=== PATIENT | female | born 1935 | race Caucasian/White ===

== ENCOUNTER 2017-07-16 11:44 | Inpatient (IN) | payer MEDICARE, OTHER ==
[2017-07-16] MEDS ORDERED: Sodium Chloride 0.9% 10 ML Syringe FLUSH PRN (12:43)
--- NOTE | 2017-07-16 14:28 | EDM.PDOC ---
ED HPI GENERAL MEDICAL PROBLEM - General Chief Complaint: General Stated Complaint: ILLNESS Time Seen by Provider: 07/16/17 12:40 Source of Information: Reports: Patient History Limitations: Reports: No Limitations - History of Present Illness INITIAL COMMENTS - FREE TEXT/NARRATIVE: pt arrivec with 6 or 7 episodes of near syncope. She has not had chest pain. She has not been sob. Onset: Today Duration: Hour(s): Location: Reports: Other (near syncope) Quality: Reports: Sharp, Stabbing Severity: Moderate Associated Symptoms: Reports: Syncope, Weakness denies Pain Score (Numeric/FACES): 0 - Related Data Allergies Allergy/AdvReac Type Severity Reaction Status Date / Time cefadroxil hydrate Allergy Cannot Verified 07/16/17 12:34 [From Duricef] Remember ciprofloxacin [From Cipro] Allergy Cannot Verified 07/16/17 12:34 Remember ciprofloxacin HCl Allergy Cannot Verified 07/16/17 12:34 [From Cipro] Remember meclizine HCl [From Antivert] Allergy Rash Verified 07/16/17 12:34 metronidazole Allergy Cannot Verified 07/16/17 12:34 Remember prednisone Allergy Headache Verified 07/16/17 12:34 Home Meds: Home Meds Diazepam [Valium] 2.5 mg PO BID 05/19/15 [History] Levothyroxine 75 mcg PO DAILY 05/19/15 [History] Linagliptin [Tradjenta] 5 mg PO DAILY 05/19/15 [History] Simvastatin [Zocor] 20 mg PO DAILY 05/19/15 [History] Past Medical History HEENT History: Reports: Cataract, Hard of Hearing Cardiovascular History: Reports: High Cholesterol, Hypertension, CT, Other (See Below) Other Cardiovascular History: mi 1985 Respiratory History: Reports: COPD Gastrointestinal History: Reports: Chronic Constipation, Hemorrhoids, Hiatal Hernia, Other (See Below) Other Gastrointestinal History: RECENT DIARRHEA, ABDOMINAL PAIN AND LOOSE STOOLS Genitourinary History: Reports: Chronic Renal Insuffiency, Other (See Below) Other Genitourinary History: frequency 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: Musculoskeletal History: Reports: Osteoarthritis Psychiatric History: Reports: Anxiety Other Psychiatric History: nervous breakdown Endocrine/Metabolic History: Reports: Diabetes, Type II, Hypothyroidism - Infectious Disease History Infectious Disease History: Reports: Chicken Pox, Measles, Mumps - Past Surgical History GI Surgical History: Reports: Appendectomy, Cholecystectomy, Other (See Below) Female Surgical History: Reports: Hysterectomy, Salpingo-Oophorectomy Social & Family History - Family History HEENT: Reports: Cataract Cardiac: Reports: Hypertension, CT Oncologic: Reports: Uterine - Tobacco Use Smoking Status *Q: Former Smoker Used Tobacco, but Quit: Yes Month/Year Tobacco Last Used: 15 Second Hand Smoke Exposure: No - Caffeine Use Caffeine Use: Reports: Coffee - Recreational Drug Use Recreational Drug Use: No ED ROS GENERAL - Review of Systems Review Of Systems: See Below Constitutional: Reports: No Symptoms HEENT: Reports: No Symptoms Respiratory: Reports: No Symptoms Cardiovascular: Reports: No Symptoms Endocrine: Reports: No Symptoms GI/Abdominal: Reports: No Symptoms : Reports: No Symptoms Skin: Reports: No Symptoms Neurological: Reports: Syncope, Other (pt had about 7 episodes of neaR SYNCOPE) ED EXAM, GENERAL - Physical Exam Exam: See Below Free Text/Narrative:: PT ARRIVED WITH 6 EPISODES OF NEAR SYNCOPE. sHE HAS NOT HAD ANY CHEST PAIN. Exam Limited By: No Limitations General Appearance: Alert, No Apparent Distress, Anxious, Other (PUPILS EQUAL AND REACTIVE) Ears: Normal TMs Nose: Normal Inspection Throat/Mouth: Normal Inspection Head: Atraumatic Neck: Normal Inspection Respiratory/Chest: No Respiratory Distress Cardiovascular: Regular Rate, Rhythm, Tachycardia, Other (PT HAS A RATE OF 126) GI/Abdominal: Soft, Non-Tender Rectal (Female) Exam: Deferred Back Exam: Normal Inspection Extremities: Normal Inspection Neurological: Alert, Oriented, Normal Cognition Psychiatric: Normal Affect Course - Vital Signs Last Recorded V/S: Last Vital Signs Temp 36.6 C 07/17/17 08:00 Pulse 54 L 07/17/17 08:00 Resp 20 07/17/17 08:00 BP 124/51 L 07/17/17 08:00 Pulse Ox 98 07/17/17 08:00 Orthostatic Blood Pressure [ 135/93 Standing] Orthostatic Blood Pressure [ 155/91 Sitting] Orthostatic Blood Pressure [ 169/89 Supine] - Orders/Labs/Meds Labs: Laboratory Tests 07/16/17 07/16/17 07/16/17 Range/Units 12:42 12:42 12:42 WBC 7.0 (4.5-11.0) K/uL RBC 5.07 (3.30-5.50) M/uL Hgb 15.0 (12.0-15.0) g/dL Hct 46.5 (36.0-48.0) % MCV 92 (80-98) fL MCH 30 (27-31) pg MCHC 32 (32-36) % Plt Count 167 (150-400) K/uL Neut % (Auto) 54 (36-66) % Lymph % (Auto) 23 L (24-44) % [place] % (Auto) 14 H (2-6) % Eos % (Auto) 8 H (2-4) % Baso % (Auto) 0 (0-1) % Sodium 141 (140-148) mmol/L Potassium 4.8 (3.6-5.2) mmol/L Chloride 110 H (100-108) mmol/L Carbon Dioxide 23 (21-32) mmol/L Anion Gap 12.8 (5.0-14.0) mmol/L BUN 23 H (7-18) mg/dL Creatinine 1.6 H (0.6-1.0) mg/dL Est Cr Clr Drug Dosing 19.14 mL/min Estimated GFR (MDRD) 31 L (>60) Glucose 92 (74-106) mg/dL Calcium 9.2 (8.5-10.1) mg/dL Total Bilirubin 0.5 (0.2-1.0) mg/dL AST 25 (15-37) U/L ALT 25 (12-78) U/L Alkaline Phosphatase 113 (46-116) U/L Troponin I 0.781 H* (0.000-0.056) ng/mL Total Protein 7.3 (6.4-8.2) g/dL Albumin 3.6 (3.4-5.0) g/dL Globulin 3.7 H (2.3-3.5) g/dL Albumin/Globulin Ratio 1.0 L (1.2-2.2) Urine Color Urine Appearance Urine pH (4.5-8.0) Ur Specific [place] (1.008-1.030) Urine Protein (NEGATIVE) mg/dL Urine Glucose (UA) (NEGATIVE) mg/dL Urine Ketones (NEGATIVE) mg/dL Urine Occult Blood (NEGATIVE) Urine Nitrite (NEGATIVE) Urine Bilirubin (NEGATIVE) Urine Urobilinogen (NORMAL) mg/dL Ur Leukocyte Esterase (NEGATIVE) Urine RBC (0-5) Urine WBC (0-5) Ur Epithelial Cells Amorphous Sediment Urine Bacteria Urine Mucus 07/16/17 Range/Units 13:34 WBC (4.5-11.0) K/uL RBC (3.30-5.50) M/uL Hgb (12.0-15.0) g/dL Hct (36.0-48.0) % MCV (80-98) fL MCH (27-31) pg MCHC (32-36) % Plt Count (150-400) K/uL Neut % (Auto) (36-66) % Lymph % (Auto) (24-44) % [place] % (Auto) (2-6) % Eos % (Auto) (2-4) % Baso % (Auto) (0-1) % Sodium (140-148) mmol/L Potassium (3.6-5.2) mmol/L Chloride (100-108) mmol/L Carbon Dioxide (21-32) mmol/L Anion Gap (5.0-14.0) mmol/L BUN (7-18) mg/dL Creatinine (0.6-1.0) mg/dL Est Cr Clr Drug Dosing mL/min Estimated GFR (MDRD) (>60) Glucose (74-106) mg/dL Calcium (8.5-10.1) mg/dL Total Bilirubin (0.2-1.0) mg/dL AST (15-37) U/L ALT (12-78) U/L Alkaline Phosphatase (46-116) U/L Troponin I (0.000-0.056) ng/mL Total Protein (6.4-8.2) g/dL Albumin (3.4-5.0) g/dL Globulin (2.3-3.5) g/dL Albumin/Globulin Ratio (1.2-2.2) Urine Color Yellow Urine Appearance Slightly cloudy Urine pH 7.0 (4.5-8.0) Ur Specific [place] 1.010 (1.008-1.030) Urine Protein Negative (NEGATIVE) mg/dL Urine Glucose (UA) Normal (NEGATIVE) mg/dL Urine Ketones Negative (NEGATIVE) mg/dL Urine Occult Blood Negative (NEGATIVE) Urine Nitrite Negative (NEGATIVE) Urine Bilirubin Negative (NEGATIVE) Urine Urobilinogen Normal (NORMAL) mg/dL Ur Leukocyte Esterase Small (NEGATIVE) Urine RBC Not seen (0-5) Urine WBC 5-10 H (0-5) Ur Epithelial Cells Moderate Amorphous Sediment Rare Urine Bacteria Few Urine Mucus Not seen Meds: Medications Discontinued Medications Generic Name Dose Route Start Last Admin Trade Name Freq PRN Reason Stop Dose Admin Adenosine 6 mg 07/16/17 14:32 07/16/17 14:36 Adenocard IVPUSH 07/16/17 14:33 6 mg NOW ONE Administration Diazepam 2.5 mg 07/16/17 21:00 07/17/17 08:39 Valium. PO 2.5 mg BID BERTHA Administration Diltiazem HCl 5 mg 07/16/17 15:00 07/16/17 15:00 Diltiazem IVPUSH 07/16/17 15:01 5 mg ONETIME ONE Administration Sodium Chloride 1,000 mls @ 200 mls/hr 07/16/17 14:30 07/16/17 14:36 Normal Saline IV 200 mls/hr ASDIRECTED BERTHA Administration Diltiazem HCl 125 mg/ Dextrose 125 mls @ 5 mls/hr 07/16/17 14:45 07/16/17 22: 30 /Water IV 0 mg/hr TITRATE BERTHA 0 mls/hr Titration Protocol 5 MG/HR Diltiazem HCl 100 mg/ Sodium 100 mls @ 5 mls/hr 07/16/17 15:15 Chloride IV TITRATE BERTHA Protocol 5 MG/HR Sodium Chloride 1,000 mls @ 100 mls/hr 07/16/17 23:00 07/16/17 23:34 Normal Saline IV 100 mls/hr ASDIRECTED BERTHA Administration Levothyroxine Sodium 75 mcg 07/17/17 07:30 07/17/17 08:10 Levothyroxine PO 75 mcg DAILY@0730 BERTHA Administration Simvastatin 80 mg 07/17/17 09:00 07/17/17 09:46 Zocor PO Not Given DAILY BERTHA Sodium Chloride 10 ml 07/16/17 12:43 07/16/17 13:34 Saline Flush FLUSH 10 ml ASDIRECTED PRN Administration Keep Vein Open - Re-Assessments/Exams Free Text/Narrative Re-Assessment/Exam: 07/16/17 14:44 PT CONTINUED TO HAVE A HEART RATE OF 125-127. sHE HAD NO PAIN. sHE HAS NOT HAD ANY FURTHER SYNCOPAL EPISODES. sHE WAS GIVEN ADENOGARD AND SHE WAS IN ATRIAL FLUTTER. wILL START A CARDIZEM DRIP. hER TROP WAS ELEVATED AT GREATER THAN .7 Departure - Departure Time of Disposition: 14:47 Disposition: Admitted As Inpatient 65 Condition: Fair Clinical Impression: Syncope, Atrial flutter, Elevated troponin - Discharge Information
[2017-07-16] MEDS ORDERED: Sodium Chloride 0.9% 1,000 ML IV SCH ×2 (14:30→23:00)
[2017-07-16] MEDS ORDERED: Adenosine 6 MG/2 ML SDV IVPUSH ONE (14:32)
[2017-07-16] MEDS ORDERED: Diltiazem 25 MG/5 ML SDV IVPUSH ONE ×2 (14:40→15:00)
[2017-07-16] MEDS ORDERED: Diltiazem 100 MG in Sodium Chloride 0.9% 100 ML IV SCH ×2 (14:45→15:15)
--- NOTE | 2017-07-16 15:02 | PCM.HP ---
H&P History of Present Illness - General Date of Service: 07/16/17 Admit Problem/Dx: Admission Diagnosis/Problem Admission Diagnosis/Problem Atrial flutter Source of Information: Patient, EMS Notes Reviewed History Limitations: Reports: No Limitations - History of Present Illness Initial Comments - Free Text/Narative: Anahi started to feel weak while sitting in a chair after eating a meal. She had 1/2 cup of coffee and tejada. Came into the ER feeling weak. A rapid heart rate was found and was given Adenosine and showed her heart to be in a flutter with tachycardia. Onset of Symptoms: Reports: Today, Sudden Severity: Moderate denies Pain Score (Numeric/FACES): 0 - Related Data Allergies/Adverse Reactions: Allergies Allergy/AdvReac Type Severity Reaction Status Date / Time cefadroxil hydrate Allergy Cannot Verified 07/16/17 12:34 [From Duricef] Remember ciprofloxacin [From Cipro] Allergy Cannot Verified 07/16/17 12:34 Remember ciprofloxacin HCl Allergy Cannot Verified 07/16/17 12:34 [From Cipro] Remember meclizine HCl [From Antivert] Allergy Rash Verified 07/16/17 12:34 metronidazole Allergy Cannot Verified 07/16/17 12:34 Remember prednisone Allergy Headache Verified 07/16/17 12:34 Home Medications: Home Meds Diazepam [Valium] 2.5 mg PO BID 05/19/15 [History] Levothyroxine 75 mcg PO DAILY 05/19/15 [History] Linagliptin [Tradjenta] 5 mg PO DAILY 05/19/15 [History] Simvastatin [Zocor] 20 mg PO DAILY 05/19/15 [History] Past Medical History HEENT History: Reports: Cataract, Hard of Hearing Cardiovascular History: Reports: High Cholesterol, Hypertension, [place], Other (See Below) Other Cardiovascular History: mi 1985 Respiratory History: Reports: COPD Gastrointestinal History: Reports: Chronic Constipation, Hemorrhoids, Hiatal Hernia, Other (See Below) Other Gastrointestinal History: RECENT DIARRHEA, ABDOMINAL PAIN AND LOOSE STOOLS Genitourinary History: Reports: Chronic Renal Insuffiency, Other (See Below) Other Genitourinary History: frequency 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: Musculoskeletal History: Reports: Osteoarthritis Psychiatric History: Reports: Anxiety Other Psychiatric History: nervous breakdown Endocrine/Metabolic History: Reports: Diabetes, Type II, Hypothyroidism - Infectious Disease History Infectious Disease History: Reports: Chicken Pox, Measles, Mumps - Past Surgical History GI Surgical History: Reports: Appendectomy, Cholecystectomy, Other (See Below) Female Surgical History: Reports: Hysterectomy, Salpingo-Oophorectomy Social & Family History - Family History HEENT: Reports: Cataract Cardiac: Reports: Hypertension, [place] Oncologic: Reports: Uterine - Tobacco Use Smoking Status *Q: Former Smoker Used Tobacco, but Quit: Yes Month/Year Tobacco Last Used: 15 Second Hand Smoke Exposure: No - Caffeine Use Caffeine Use: Reports: Coffee - Recreational Drug Use Recreational Drug Use: No H&P Review of Systems - Review of Systems: Review Of Systems: See Below General: Reports: Weakness, Fatigue, Diaphoresis HEENT: Reports: No Symptoms Pulmonary: Reports: No Symptoms Cardiovascular: Reports: Palpitations, Dyspnea on Exertion Gastrointestinal: Reports: No Symptoms Genitourinary: Reports: Frequency Musculoskeletal: Reports: No Symptoms Skin: Reports: No Symptoms Psychiatric: Reports: Anxiety Neurological: Reports: Weakness Hematologic/Lymphatic: Reports: No Symptoms Exam - Exam Exam: See Below - Vital Signs Vital Signs: Last Vital Signs Temp 98.7 F 07/16/17 12:32 Pulse 126 H 07/16/17 12:32 Resp 14 07/16/17 12:32 BP 165/87 H 07/16/17 12:32 Pulse Ox 94 L 07/16/17 12:32 Orthostatic Blood Pressure [ 135/93 Standing] Orthostatic Blood Pressure [ 155/91 Sitting] Orthostatic Blood Pressure [ 169/89 Supine] Weight: 172 lb - Exam General: Alert, Oriented, Cooperative, Moderate Distress HEENT: PERRLA, EACs Clear Neck: Supple, Trachea Midline, 2 Lungs: Clear to Auscultation, Normal Respiratory Effort Cardiovascular: Tachycardia GI/Abdominal Exam: Normal Bowel Sounds, Soft, Non-Tender, No Organomegaly, No Distention, No Abnormal Bruit, No Mass, Pelvis Stable Extremities: Normal Inspection Peripheral Pulses: 1+: Radial (L), Radial (R) Skin: Warm, Dry, Intact Neurological: Reflexes Equal Bilateral Neuro Extensive - Mental Status: Alert, Oriented x3 Neuro Extensive - Motor, Sensory, Reflexes: CN II-XII Intact DTR: 1+: Bicep (L), Bicep (R) Psychiatric: Alert, Anxious - Patient Data Lab Results Last 24 hrs: Laboratory Results - last 24 hr 07/16/17 07/16/17 07/16/17 Range/Units 12:42 12:42 12:42 WBC 7.0 (4.5-11.0) K/uL RBC 5.07 (3.30-5.50) M/uL Hgb 15.0 (12.0-15.0) g/dL Hct 46.5 (36.0-48.0) % MCV 92 (80-98) fL MCH 30 (27-31) pg MCHC 32 (32-36) % Plt Count 167 (150-400) K/uL Neut % (Auto) 54 (36-66) % Lymph % (Auto) 23 L (24-44) % [place] % (Auto) 14 H (2-6) % Eos % (Auto) 8 H (2-4) % Baso % (Auto) 0 (0-1) % Sodium 141 (140-148) mmol/L Potassium 4.8 (3.6-5.2) mmol/L Chloride 110 H (100-108) mmol/L Carbon Dioxide 23 (21-32) mmol/L Anion Gap 12.8 (5.0-14.0) mmol/L BUN 23 H (7-18) mg/dL Creatinine 1.6 H (0.6-1.0) mg/dL Est Cr Clr Drug Dosing 19.14 mL/min Estimated GFR (MDRD) 31 L (>60) Glucose 92 (74-106) mg/dL Calcium 9.2 (8.5-10.1) mg/dL Total Bilirubin 0.5 (0.2-1.0) mg/dL AST 25 (15-37) U/L ALT 25 (12-78) U/L Alkaline Phosphatase 113 (46-116) U/L Troponin I 0.781 H* (0.000-0.056) ng/mL Total Protein 7.3 (6.4-8.2) g/dL Albumin 3.6 (3.4-5.0) g/dL Globulin 3.7 H (2.3-3.5) g/dL Albumin/Globulin Ratio 1.0 L (1.2-2.2) Urine Color Urine Appearance Urine pH (4.5-8.0) Ur Specific [place] (1.008-1.030) Urine Protein (NEGATIVE) mg/dL Urine Glucose (UA) (NEGATIVE) mg/dL Urine Ketones (NEGATIVE) mg/dL Urine Occult Blood (NEGATIVE) Urine Nitrite (NEGATIVE) Urine Bilirubin (NEGATIVE) Urine Urobilinogen (NORMAL) mg/dL Ur Leukocyte Esterase (NEGATIVE) Urine RBC (0-5) Urine WBC (0-5) Ur Epithelial Cells Amorphous Sediment Urine Bacteria Urine Mucus 07/16/17 Range/Units 13:34 WBC (4.5-11.0) K/uL RBC (3.30-5.50) M/uL Hgb (12.0-15.0) g/dL Hct (36.0-48.0) % MCV (80-98) fL MCH (27-31) pg MCHC (32-36) % Plt Count (150-400) K/uL Neut % (Auto) (36-66) % Lymph % (Auto) (24-44) % [place] % (Auto) (2-6) % Eos % (Auto) (2-4) % Baso % (Auto) (0-1) % Sodium (140-148) mmol/L Potassium (3.6-5.2) mmol/L Chloride (100-108) mmol/L Carbon Dioxide (21-32) mmol/L Anion Gap (5.0-14.0) mmol/L BUN (7-18) mg/dL Creatinine (0.6-1.0) mg/dL Est Cr Clr Drug Dosing mL/min Estimated GFR (MDRD) (>60) Glucose (74-106) mg/dL Calcium (8.5-10.1) mg/dL Total Bilirubin (0.2-1.0) mg/dL AST (15-37) U/L ALT (12-78) U/L Alkaline Phosphatase (46-116) U/L Troponin I (0.000-0.056) ng/mL Total Protein (6.4-8.2) g/dL Albumin (3.4-5.0) g/dL Globulin (2.3-3.5) g/dL Albumin/Globulin Ratio (1.2-2.2) Urine Color Yellow Urine Appearance Slightly cloudy Urine pH 7.0 (4.5-8.0) Ur Specific [place] 1.010 (1.008-1.030) Urine Protein Negative (NEGATIVE) mg/dL Urine Glucose (UA) Normal (NEGATIVE) mg/dL Urine Ketones Negative (NEGATIVE) mg/dL Urine Occult Blood Negative (NEGATIVE) Urine Nitrite Negative (NEGATIVE) Urine Bilirubin Negative (NEGATIVE) Urine Urobilinogen Normal (NORMAL) mg/dL Ur Leukocyte Esterase Small (NEGATIVE) Urine RBC Not seen (0-5) Urine WBC 5-10 H (0-5) Ur Epithelial Cells Moderate Amorphous Sediment Rare Urine Bacteria Few Urine Mucus Not seen Result Diagrams: 07/17/17 05:11 07/17/17 05:11 Problem List Initiated/Reviewed/Updated: Yes Orders Last 24hrs: Active Orders 24 hr Category Date Time Status Patient Status [ADT] Routine ADT 07/16/17 14:48 Ordered Blood Glucose Check, Bedside [RC] QIDACANDBED Care 07/16/17 14:48 Ordered EKG Documentation Completion [RC] ASDIRECTED Care 07/16/17 12:42 Active Basurto Catheter Insertion [Insert Urinary Catheter] [OM. Care 07/16/17 15:00 Ordered PC] Q24H Height and Weight [RC] DAILY Care 07/16/17 14:48 Ordered Intake and Output [RC] QSHIFT Care 07/16/17 14:51 Ordered May Shower [RC] ASDIRECTED Care 07/16/17 14:48 Ordered Orthostatic Vital Signs [RC] ASDIRECTED Care 07/16/17 12:43 Active Oxygen Therapy [RC] PRN Care 07/16/17 14:48 Ordered Up With Assistance [RC] ASDIRECTED Care 07/16/17 14:48 Ordered Up to Chair [RC] QID Care 07/16/17 14:48 Ordered Urinary Catheter Assessment [RC] ASDIRECTED Care 07/16/17 14:47 Active VTE/DVT Education [RC] Per Unit Routine Care 07/16/17 14:48 Ordered Vital Signs [RC] Q4H Care 07/16/17 14:48 Ordered Consistent Carbohydrate Diet [DIET] Diet 07/16/17 Dinner Ordered BASIC METABOLIC PANEL,BMP [CHEM] AM Lab 07/17/17 05:11 Ordered CBC WITH AUTO DIFF [HEME] AM Lab 07/17/17 05:11 Ordered UA W/MICROSCOPIC [URIN] Urgent Lab 07/16/17 13:34 Ordered Diazepam [Valium] Med 07/16/17 21:00 Ordered 2.5 mg PO BID Diltiazem 100 MG in Normal Saline Adv @ 5 MG/HR(100ml) Med 07/16/17 15:15 Ordered Diltiazem [Cardizem] 100 mg Sodium Chloride 0.9% [Normal Saline] 100 ml IV TITRATE Diltiazem 125 mg Med 07/16/17 14:45 Active Dextrose 5% in Water 100 ml IV TITRATE Levothyroxine Med 07/17/17 09:00 Ordered 75 mcg PO DAILY Linagliptin [Tradjenta] Med 07/17/17 09:00 Ordered 5 mg PO DAILY Simvastatin [Zocor] Med 07/17/17 09:00 Ordered 80 mg PO DAILY Sodium Chloride 0.9% [Normal Saline] 1,000 ml Med 07/16/17 14:30 Active IV ASDIRECTED Sodium Chloride 0.9% [Saline Flush] Med 07/16/17 12:43 Active 10 ml FLUSH ASDIRECTED PRN Saline Lock Insert [OM.PC] Routine Oth 07/16/17 12:43 Ordered Resuscitation Status Routine Resus Stat 07/16/17 14:48 Ordered EKG 12 Lead [EK] Routine Ther 07/16/17 12:42 Ordered Medication Orders Diazepam (Valium.) 2.5 mg PO BID BERTHA Sodium Chloride (Normal Saline) 1,000 mls @ 200 mls/hr IV ASDIRECTED BERTHA Last Admin: 07/16/17 14:36 Dose: 200 mls/hr Diltiazem HCl 125 mg/ Dextrose (/Water) 125 mls @ 5 mls/hr IV TITRATE BERTHA; Protocol Diltiazem HCl 100 mg/ Sodium (Chloride) 100 mls @ 5 mls/hr IV TITRATE BERTHA; Protocol Levothyroxine Sodium (Levothyroxine) 75 mcg PO DAILY BERTHA Non-Formulary Medication (Linagliptin [Tradjenta]) 5 mg PO DAILY BERTHA Non-Formulary Medication (Simvastatin [Zocor]) 80 mg PO DAILY BERTHA Sodium Chloride (Saline Flush) 10 ml FLUSH ASDIRECTED PRN PRN Reason: Keep Vein Open Last Admin: 07/16/17 13:34 Dose: 10 ml Assessment/Plan Comment:: Assessment/Plan: #1. Atrial Flutter: Have transferred her to the ICU and started her on a Cardizem drip and will titrate as needed. #2. DMII: Will continue with Tradjenta #3. Anxiety: Will continue with Diazepam #4. Hypothyroid: Continue with Levothyroxine 75 mcg #5. HTN: Will hold Amlodipine #6. HLD: Continue with Simvastatin.
[2017-07-16] MEDS: Diazepam 5 MG Tab PO SCH (20:41)
[2017-07-17] MEDS ORDERED: Levothyroxine 75 MCG Tab PO SCH (07:30)
[2017-07-17] MEDS: Diazepam 5 MG Tab PO SCH (08:39)
[2017-07-17] MEDS: Simvastatin 20 MG Tab PO SCH ×2 (08:50→09:46)
[2017-07-17 11:01] VITALS: BP 124/51
--- NOTE | 2017-07-17 13:12 | PCM.PN ---
- General Info Date of Service: 07/17/17 Functional Status: Reports: Pain Controlled - Review of Systems General: Reports: Weakness, Fatigue HEENT: Reports: No Symptoms Pulmonary: Reports: No Symptoms Cardiovascular: Reports: No Symptoms Gastrointestinal: Reports: No Symptoms Genitourinary: Reports: No Symptoms Musculoskeletal: Reports: No Symptoms Skin: Reports: No Symptoms Neurological: Reports: No Symptoms Psychiatric: Reports: Anxiety - Patient Data Vitals - Most Recent: Last Vital Signs Temp 97.9 F 07/17/17 08:00 Pulse 54 L 07/17/17 08:00 Resp 20 07/17/17 08:00 BP 124/51 L 07/17/17 08:00 Pulse Ox 98 07/17/17 08:00 Orthostatic Blood Pressure [ 135/93 Standing] Orthostatic Blood Pressure [ 155/91 Sitting] Orthostatic Blood Pressure [ 169/89 Supine] Weight - Most Recent: 172 lb I&O - Last 24 Hours: Intake & Output 07/16/17 07/17/17 07/17/17 22:59 06:59 14:59 Intake Total 664 1829 Output Total 400 500 300 Balance 264 1329 -300 Lab Results Last 24 Hours: Laboratory Results - last 24 hr 07/16/17 07/16/17 07/16/17 Range/Units 12:42 12:42 12:42 WBC 7.0 (4.5-11.0) K/uL RBC 5.07 (3.30-5.50) M/uL Hgb 15.0 (12.0-15.0) g/dL Hct 46.5 (36.0-48.0) % MCV 92 (80-98) fL MCH 30 (27-31) pg MCHC 32 (32-36) % Plt Count 167 (150-400) K/uL Neut % (Auto) 54 (36-66) % Lymph % (Auto) 23 L (24-44) % [place] % (Auto) 14 H (2-6) % Eos % (Auto) 8 H (2-4) % Baso % (Auto) 0 (0-1) % Sodium 141 (140-148) mmol/L Potassium 4.8 (3.6-5.2) mmol/L Chloride 110 H (100-108) mmol/L Carbon Dioxide 23 (21-32) mmol/L Anion Gap 12.8 (5.0-14.0) mmol/L BUN 23 H (7-18) mg/dL Creatinine 1.6 H (0.6-1.0) mg/dL Est Cr Clr Drug Dosing 19.14 mL/min Estimated GFR (MDRD) 31 L (>60) Glucose 92 (74-106) mg/dL Calcium 9.2 (8.5-10.1) mg/dL Total Bilirubin 0.5 (0.2-1.0) mg/dL AST 25 (15-37) U/L ALT 25 (12-78) U/L Alkaline Phosphatase 113 (46-116) U/L Creatine Kinase (26-192) U/L Troponin I 0.781 H* (0.000-0.056) ng/mL Total Protein 7.3 (6.4-8.2) g/dL Albumin 3.6 (3.4-5.0) g/dL Globulin 3.7 H (2.3-3.5) g/dL Albumin/Globulin Ratio 1.0 L (1.2-2.2) Urine Color Urine Appearance Urine pH (4.5-8.0) Ur Specific [place] (1.008-1.030) Urine Protein (NEGATIVE) mg/dL Urine Glucose (UA) (NEGATIVE) mg/dL Urine Ketones (NEGATIVE) mg/dL Urine Occult Blood (NEGATIVE) Urine Nitrite (NEGATIVE) Urine Bilirubin (NEGATIVE) Urine Urobilinogen (NORMAL) mg/dL Ur Leukocyte Esterase (NEGATIVE) Urine RBC (0-5) Urine WBC (0-5) Ur Epithelial Cells Amorphous Sediment Urine Bacteria Urine Mucus 07/16/17 07/16/17 07/16/17 Range/Units 13:34 21:08 21:08 WBC (4.5-11.0) K/uL RBC (3.30-5.50) M/uL Hgb (12.0-15.0) g/dL Hct (36.0-48.0) % MCV (80-98) fL MCH (27-31) pg MCHC (32-36) % Plt Count (150-400) K/uL Neut % (Auto) (36-66) % Lymph % (Auto) (24-44) % [place] % (Auto) (2-6) % Eos % (Auto) (2-4) % Baso % (Auto) (0-1) % Sodium (140-148) mmol/L Potassium (3.6-5.2) mmol/L Chloride (100-108) mmol/L Carbon Dioxide (21-32) mmol/L Anion Gap (5.0-14.0) mmol/L BUN (7-18) mg/dL Creatinine (0.6-1.0) mg/dL Est Cr Clr Drug Dosing mL/min Estimated GFR (MDRD) (>60) Glucose (74-106) mg/dL Calcium (8.5-10.1) mg/dL Total Bilirubin (0.2-1.0) mg/dL AST (15-37) U/L ALT (12-78) U/L Alkaline Phosphatase (46-116) U/L Creatine Kinase 38 (26-192) U/L Troponin I 0.734 H* (0.000-0.056) ng/mL Total Protein (6.4-8.2) g/dL Albumin (3.4-5.0) g/dL Globulin (2.3-3.5) g/dL Albumin/Globulin Ratio (1.2-2.2) Urine Color Yellow Urine Appearance Slightly cloudy Urine pH 7.0 (4.5-8.0) Ur Specific [place] 1.010 (1.008-1.030) Urine Protein Negative (NEGATIVE) mg/dL Urine Glucose (UA) Normal (NEGATIVE) mg/dL Urine Ketones Negative (NEGATIVE) mg/dL Urine Occult Blood Negative (NEGATIVE) Urine Nitrite Negative (NEGATIVE) Urine Bilirubin Negative (NEGATIVE) Urine Urobilinogen Normal (NORMAL) mg/dL Ur Leukocyte Esterase Small (NEGATIVE) Urine RBC Not seen (0-5) Urine WBC 5-10 H (0-5) Ur Epithelial Cells Moderate Amorphous Sediment Rare Urine Bacteria Few Urine Mucus Not seen 07/17/17 07/17/17 07/17/17 Range/Units 05:00 05:11 05:11 WBC 6.5 (4.5-11.0) K/uL RBC 4.04 (3.30-5.50) M/uL Hgb 12.0 D (12.0-15.0) g/dL Hct 37.3 (36.0-48.0) % MCV 92 (80-98) fL MCH 30 (27-31) pg MCHC 32 (32-36) % Plt Count 147 L (150-400) K/uL Neut % (Auto) 51 (36-66) % Lymph % (Auto) 28 (24-44) % [place] % (Auto) 13 H (2-6) % Eos % (Auto) 7 H (2-4) % Baso % (Auto) 0 (0-1) % Sodium 145 (140-148) mmol/L Potassium 4.6 (3.6-5.2) mmol/L Chloride 114 H (100-108) mmol/L Carbon Dioxide 22 (21-32) mmol/L Anion Gap 13.6 (5.0-14.0) mmol/L BUN 19 H (7-18) mg/dL Creatinine 1.3 H (0.6-1.0) mg/dL Est Cr Clr Drug Dosing 23.55 mL/min Estimated GFR (MDRD) 39 L (>60) Glucose 90 (74-106) mg/dL Calcium 7.9 L (8.5-10.1) mg/dL Total Bilirubin (0.2-1.0) mg/dL AST (15-37) U/L ALT (12-78) U/L Alkaline Phosphatase (46-116) U/L Creatine Kinase 41 (26-192) U/L Troponin I 0.539 H* (0.000-0.056) ng/mL Total Protein (6.4-8.2) g/dL Albumin (3.4-5.0) g/dL Globulin (2.3-3.5) g/dL Albumin/Globulin Ratio (1.2-2.2) Urine Color Urine Appearance Urine pH (4.5-8.0) Ur Specific [place] (1.008-1.030) Urine Protein (NEGATIVE) mg/dL Urine Glucose (UA) (NEGATIVE) mg/dL Urine Ketones (NEGATIVE) mg/dL Urine Occult Blood (NEGATIVE) Urine Nitrite (NEGATIVE) Urine Bilirubin (NEGATIVE) Urine Urobilinogen (NORMAL) mg/dL Ur Leukocyte Esterase (NEGATIVE) Urine RBC (0-5) Urine WBC (0-5) Ur Epithelial Cells Amorphous Sediment Urine Bacteria Urine Mucus Med Orders - Current: Current Medications Discontinued Medications Adenosine (Adenocard) 6 mg IVPUSH NOW ONE Stop: 07/16/17 14:33 Last Admin: 07/16/17 14:36 Dose: 6 mg Diazepam (Valium.) 2.5 mg PO BID BERTHA Last Admin: 07/17/17 08:39 Dose: 2.5 mg Diltiazem HCl (Diltiazem) 5 mg IVPUSH ONETIME ONE Stop: 07/16/17 15:01 Last Admin: 07/16/17 15:00 Dose: 5 mg Sodium Chloride (Normal Saline) 1,000 mls @ 200 mls/hr IV ASDIRECTED [facility] Last Admin: 07/16/17 14:36 Dose: 200 mls/hr Diltiazem HCl 125 mg/ Dextrose (/Water) 125 mls @ 5 mls/hr IV TITRATE BERTHA; Protocol Last Titration: 07/16/17 22:30 Dose: 0 mg/hr, 0 mls/hr Diltiazem HCl 100 mg/ Sodium (Chloride) 100 mls @ 5 mls/hr IV TITRATE BERTHA; Protocol Sodium Chloride (Normal Saline) 1,000 mls @ 100 mls/hr IV ASDIRECTED [facility] Last Admin: 07/16/17 23:34 Dose: 100 mls/hr Levothyroxine Sodium (Levothyroxine) 75 mcg PO DAILY@0730 [facility] Last Admin: 07/17/17 08:10 Dose: 75 mcg Simvastatin (Zocor) 80 mg PO DAILY [facility] Last Admin: 07/17/17 09:46 Dose: Not Given Sodium Chloride (Saline Flush) 10 ml FLUSH ASDIRECTED PRN PRN Reason: Keep Vein Open Last Admin: 07/16/17 13:34 Dose: 10 ml - Exam General: Alert, Oriented HEENT: Pupils Equal, Pupils Reactive, EOMI, Mucous Membr. Moist/[place] Neck: Supple Lungs: Clear to Auscultation, Normal Respiratory Effort Cardiovascular: Regular Rate, Regular Rhythm GI/Abdominal Exam: Normal Bowel Sounds, Soft, Non-Tender, No Organomegaly, No Distention, No Abnormal Bruit, No Mass, Pelvis Stable Extremities: Normal Inspection, Normal Range of Motion, Non-Tender, No Pedal Edema, Normal Capillary Refill Peripheral Pulses: 1+: Radial (L), Radial (R) Skin: Warm, Dry, Intact Neurological: No New Focal Deficit Psy/Mental Status: Alert, Normal Affect, Normal Mood, Anxious - Problem List Review Problem List Initiated/Reviewed/Updated: Yes - My Orders Last 24 Hours: My Active Orders 07/16/17 14:48 Patient Status [ADT] Routine Blood Glucose Check, Bedside [RC] QIDACANDBED Height and Weight [RC] DAILY Oxygen Therapy [RC] PRN Up With Assistance [RC] ASDIRECTED Up to Chair [RC] QID Vital Signs [RC] Q2H Resuscitation Status Routine 07/16/17 14:51 Intake and Output [RC] QSHIFT 07/16/17 22:45 EKG Documentation Completion [RC] STAT EKG 12 Lead [EK] Routine 07/17/17 08:34 EKG 12 Lead [EK] Routine 07/17/17 09:00 Ready for Discharge [RC] PER UNIT ROUTINE - Plan Plan:: Assessment/Plan: #1. Atrial Flutter: She converted to a NSR this morning and has bradycardia. Will not start Amlodipine or lisinopril today but will recheck tomorrow in the office. she is to stay off all stimulants. #2. DMII: Will continue with Tradjenta #3. Anxiety: Will continue with Diazepam #4. Hypothyroid: Continue with Levothyroxine 75 mcg #5. HTN: Will hold Amlodipine #6. HLD: Continue with Simvastatin. I will see her tomorrow in the office.
--- NOTE | 2017-07-17 13:17 | PCM.DCSUM1 ---
Discharge Summary - Hospital Course Brief History: Admitted yesteray in a Atrial Flutter pattern with tachy rate. She was feeling weak. - Discharge Data Discharge Date: 07/17/17 Discharge Disposition: Home, Self-Care 01 Condition: Good - Patient Summary/Data Hospital Course: She was started on a Cardizem drip at 5mg/hr and she converted. She then had bradycardia with low blood pressure. Lisinopril was not restarted nor Cardizem as she is having a slow heart rate in the low 50'sto 40's. Blood evaluations were unremarkable. - Patient Instructions Diet: Heart Healthy Diet Activity: As Tolerated Showering/Bathing: August Shower - Discharge Plan Home Medications: Home Meds Diazepam [Valium] 2.5 mg PO BID 05/19/15 [History] Levothyroxine 75 mcg PO DAILY 05/19/15 [History] Linagliptin [Tradjenta] 5 mg PO DAILY 05/19/15 [History] Simvastatin [Zocor] 20 mg PO DAILY 05/19/15 [History] Patient Handouts: Syncope Forms: ED Department Discharge Referrals: Juan rFitz Sr, MD [Primary Care Provider] - - Discharge Summary/Plan Comment DC Time >30 min.: No Discharge Summary/Plan Comment: Assessment/Plan: #1. Atrial Flutter: She converted to a NSR this morning and has bradycardia. Will not start Amlodipine or lisinopril today but will recheck tomorrow in the office. she is to stay off all stimulants. #2. DMII: Will continue with Tradjenta #3. Anxiety: Will continue with Diazepam #4. Hypothyroid: Continue with Levothyroxine 75 mcg #5. HTN: Will hold Amlodipine #6. HLD: Continue with Simvastatin. I will see her tomorrow in the office. - General Info Functional Status: Reports: Pain Controlled - Review of Systems General: Reports: Weakness HEENT: Reports: No Symptoms Pulmonary: Reports: Shortness of Breath Cardiovascular: Reports: Palpitations, Dyspnea on Exertion Gastrointestinal: Reports: No Symptoms Genitourinary: Reports: Frequency, Urgency Skin: Reports: No Symptoms Neurological: Reports: No Symptoms Psychiatric: Reports: No Symptoms - Patient Data Vitals - Most Recent: Last Vital Signs Temp 97.9 F 07/17/17 08:00 Pulse 54 L 07/17/17 08:00 Resp 20 07/17/17 08:00 BP 124/51 L 07/17/17 08:00 Pulse Ox 98 07/17/17 08:00 Orthostatic Blood Pressure [ 135/93 Standing] Orthostatic Blood Pressure [ 155/91 Sitting] Orthostatic Blood Pressure [ 169/89 Supine] Weight - Most Recent: 172 lb I&O - Last 24 hours: Intake & Output 07/16/17 07/17/17 07/17/17 22:59 06:59 14:59 Intake Total 664 1829 Output Total 400 500 300 Balance 264 1329 -300 Lab Results - Last 24 hrs: Laboratory Results - last 24 hr 07/16/17 07/16/17 07/16/17 Range/Units 12:42 12:42 12:42 WBC 7.0 (4.5-11.0) K/uL RBC 5.07 (3.30-5.50) M/uL Hgb 15.0 (12.0-15.0) g/dL Hct 46.5 (36.0-48.0) % MCV 92 (80-98) fL MCH 30 (27-31) pg MCHC 32 (32-36) % Plt Count 167 (150-400) K/uL Neut % (Auto) 54 (36-66) % Lymph % (Auto) 23 L (24-44) % [place] % (Auto) 14 H (2-6) % Eos % (Auto) 8 H (2-4) % Baso % (Auto) 0 (0-1) % Sodium 141 (140-148) mmol/L Potassium 4.8 (3.6-5.2) mmol/L Chloride 110 H (100-108) mmol/L Carbon Dioxide 23 (21-32) mmol/L Anion Gap 12.8 (5.0-14.0) mmol/L BUN 23 H (7-18) mg/dL Creatinine 1.6 H (0.6-1.0) mg/dL Est Cr Clr Drug Dosing 19.14 mL/min Estimated GFR (MDRD) 31 L (>60) Glucose 92 (74-106) mg/dL Calcium 9.2 (8.5-10.1) mg/dL Total Bilirubin 0.5 (0.2-1.0) mg/dL AST 25 (15-37) U/L ALT 25 (12-78) U/L Alkaline Phosphatase 113 (46-116) U/L Creatine Kinase (26-192) U/L Troponin I 0.781 H* (0.000-0.056) ng/mL Total Protein 7.3 (6.4-8.2) g/dL Albumin 3.6 (3.4-5.0) g/dL Globulin 3.7 H (2.3-3.5) g/dL Albumin/Globulin Ratio 1.0 L (1.2-2.2) Urine Color Urine Appearance Urine pH (4.5-8.0) Ur Specific [place] (1.008-1.030) Urine Protein (NEGATIVE) mg/dL Urine Glucose (UA) (NEGATIVE) mg/dL Urine Ketones (NEGATIVE) mg/dL Urine Occult Blood (NEGATIVE) Urine Nitrite (NEGATIVE) Urine Bilirubin (NEGATIVE) Urine Urobilinogen (NORMAL) mg/dL Ur Leukocyte Esterase (NEGATIVE) Urine RBC (0-5) Urine WBC (0-5) Ur Epithelial Cells Amorphous Sediment Urine Bacteria Urine Mucus 07/16/17 07/16/17 07/16/17 Range/Units 13:34 21:08 21:08 WBC (4.5-11.0) K/uL RBC (3.30-5.50) M/uL Hgb (12.0-15.0) g/dL Hct (36.0-48.0) % MCV (80-98) fL MCH (27-31) pg MCHC (32-36) % Plt Count (150-400) K/uL Neut % (Auto) (36-66) % Lymph % (Auto) (24-44) % [place] % (Auto) (2-6) % Eos % (Auto) (2-4) % Baso % (Auto) (0-1) % Sodium (140-148) mmol/L Potassium (3.6-5.2) mmol/L Chloride (100-108) mmol/L Carbon Dioxide (21-32) mmol/L Anion Gap (5.0-14.0) mmol/L BUN (7-18) mg/dL Creatinine (0.6-1.0) mg/dL Est Cr Clr Drug Dosing mL/min Estimated GFR (MDRD) (>60) Glucose (74-106) mg/dL Calcium (8.5-10.1) mg/dL Total Bilirubin (0.2-1.0) mg/dL AST (15-37) U/L ALT (12-78) U/L Alkaline Phosphatase (46-116) U/L Creatine Kinase 38 (26-192) U/L Troponin I 0.734 H* (0.000-0.056) ng/mL Total Protein (6.4-8.2) g/dL Albumin (3.4-5.0) g/dL Globulin (2.3-3.5) g/dL Albumin/Globulin Ratio (1.2-2.2) Urine Color Yellow Urine Appearance Slightly cloudy Urine pH 7.0 (4.5-8.0) Ur Specific [place] 1.010 (1.008-1.030) Urine Protein Negative (NEGATIVE) mg/dL Urine Glucose (UA) Normal (NEGATIVE) mg/dL Urine Ketones Negative (NEGATIVE) mg/dL Urine Occult Blood Negative (NEGATIVE) Urine Nitrite Negative (NEGATIVE) Urine Bilirubin Negative (NEGATIVE) Urine Urobilinogen Normal (NORMAL) mg/dL Ur Leukocyte Esterase Small (NEGATIVE) Urine RBC Not seen (0-5) Urine WBC 5-10 H (0-5) Ur Epithelial Cells Moderate Amorphous Sediment Rare Urine Bacteria Few Urine Mucus Not seen 07/17/17 07/17/17 07/17/17 Range/Units 05:00 05:11 05:11 WBC 6.5 (4.5-11.0) K/uL RBC 4.04 (3.30-5.50) M/uL Hgb 12.0 D (12.0-15.0) g/dL Hct 37.3 (36.0-48.0) % MCV 92 (80-98) fL MCH 30 (27-31) pg MCHC 32 (32-36) % Plt Count 147 L (150-400) K/uL Neut % (Auto) 51 (36-66) % Lymph % (Auto) 28 (24-44) % [place] % (Auto) 13 H (2-6) % Eos % (Auto) 7 H (2-4) % Baso % (Auto) 0 (0-1) % Sodium 145 (140-148) mmol/L Potassium 4.6 (3.6-5.2) mmol/L Chloride 114 H (100-108) mmol/L Carbon Dioxide 22 (21-32) mmol/L Anion Gap 13.6 (5.0-14.0) mmol/L BUN 19 H (7-18) mg/dL Creatinine 1.3 H (0.6-1.0) mg/dL Est Cr Clr Drug Dosing 23.55 mL/min Estimated GFR (MDRD) 39 L (>60) Glucose 90 (74-106) mg/dL Calcium 7.9 L (8.5-10.1) mg/dL Total Bilirubin (0.2-1.0) mg/dL AST (15-37) U/L ALT (12-78) U/L Alkaline Phosphatase (46-116) U/L Creatine Kinase 41 (26-192) U/L Troponin I 0.539 H* (0.000-0.056) ng/mL Total Protein (6.4-8.2) g/dL Albumin (3.4-5.0) g/dL Globulin (2.3-3.5) g/dL Albumin/Globulin Ratio (1.2-2.2) Urine Color Urine Appearance Urine pH (4.5-8.0) Ur Specific [place] (1.008-1.030) Urine Protein (NEGATIVE) mg/dL Urine Glucose (UA) (NEGATIVE) mg/dL Urine Ketones (NEGATIVE) mg/dL Urine Occult Blood (NEGATIVE) Urine Nitrite (NEGATIVE) Urine Bilirubin (NEGATIVE) Urine Urobilinogen (NORMAL) mg/dL Ur Leukocyte Esterase (NEGATIVE) Urine RBC (0-5) Urine WBC (0-5) Ur Epithelial Cells Amorphous Sediment Urine Bacteria Urine Mucus Med Orders - Current: Current Medications Discontinued Medications Adenosine (Adenocard) 6 mg IVPUSH NOW ONE Stop: 07/16/17 14:33 Last Admin: 07/16/17 14:36 Dose: 6 mg Diazepam (Valium.) 2.5 mg PO BID [facility] [place] Last Admin: 07/17/17 08:39 Dose: 2.5 mg Diltiazem HCl (Diltiazem) 5 mg IVPUSH ONETIME ONE Stop: 07/16/17 15:01 Last Admin: 07/16/17 15:00 Dose: 5 mg Sodium Chloride (Normal Saline) 1,000 mls @ 200 mls/hr IV ASDIRECTED [facility] [place] Last Admin: 07/16/17 14:36 Dose: 200 mls/hr Diltiazem HCl 125 mg/ Dextrose (/Water) 125 mls @ 5 mls/hr IV TITRATE BERTHA; Protocol Last Titration: 07/16/17 22:30 Dose: 0 mg/hr, 0 mls/hr Diltiazem HCl 100 mg/ Sodium (Chloride) 100 mls @ 5 mls/hr IV TITRATE BERTHA; Protocol Sodium Chloride (Normal Saline) 1,000 mls @ 100 mls/hr IV ASDIRECTED [facility] [place] Last Admin: 07/16/17 23:34 Dose: 100 mls/hr Levothyroxine Sodium (Levothyroxine) 75 mcg PO DAILY@0730 [facility] [place] Last Admin: 07/17/17 08:10 Dose: 75 mcg Simvastatin (Zocor) 80 mg PO DAILY [facility] [place] Last Admin: 07/17/17 09:46 Dose: Not Given Sodium Chloride (Saline Flush) 10 ml FLUSH ASDIRECTED PRN PRN Reason: Keep Vein Open Last Admin: 07/16/17 13:34 Dose: 10 ml - Exam General: Reports: Alert, Oriented HEENT: Reports: Pupils Equal, Pupils Reactive, EOMI, Mucous Membr. Moist/[place] Lungs: Reports: Clear to Auscultation, Normal Respiratory Effort Cardiovascular: Reports: Regular Rate, Regular Rhythm, Bradycardia Extremities: Normal Inspection, Normal Range of Motion, Non-Tender, No Pedal Edema, Normal Capillary Refill Skin: Reports: Warm, Dry, Intact Psy/Mental Status: Reports: Alert, Normal Affect, Normal Mood, Anxious
== END 2017-07-17 10:06 | disposition home or self-care (01) | DRG 310 ==
LOC: JP.ED 11:44 → JP.ICU 14:48
PROVIDERS: ADMIT Internal Medicine; ATTEND Internal Medicine
DX: R55 Syncope and collapse (principal); I48.92 Unspecified atrial flutter; E78.00 Pure hypercholesterolemia, unspecified; R00.1 Bradycardia, unspecified; I12.9 Hypertensive chronic kidney disease with stage 1 through stage 4 chronic kidney disease, or unspecified chronic kidney disease; E11.22 Type 2 diabetes mellitus with diabetic chronic kidney disease; N18.9 Chronic kidney disease, unspecified; F41.9 Anxiety disorder, unspecified; E78.5 Hyperlipidemia, unspecified; I25.2 Old myocardial infarction; J44.9 Chronic obstructive pulmonary disease, unspecified; E03.9 Hypothyroidism, unspecified; Z79.899 Other long term (current) drug therapy; Z88.8 Allergy status to other drugs, medicaments and biological substances; Z87.891 Personal history of nicotine dependence
CPT/HCPCS: 36415; 80053; 81001; 84484; 85025; 93005; 96374; 99285; J0153; J7040; J7050; 80048; 82550; A9270-GY; J3490; J7060

== ENCOUNTER 2022-01-21 10:00 | Inpatient (IN) | payer MEDICARE, MEDICAID ==
[2022-01-21] MEDS ORDERED: cefTRIAXone 1 GM in Sodium Chloride 0.9% 50 ML IV ONE (11:30)
[2022-01-21] MEDS ORDERED: Acetaminophen Soln 650 MG/20.3 ML UD Cup ONE (13:45)
[2022-01-21] MEDS ORDERED: Sodium Chloride 0.9% 1,000 ML IV ONE (15:00)
[2022-01-22] MEDS ORDERED: Levothyroxine 25 MCG Tab PO ONE (07:30)
[2022-01-22] MEDS ORDERED: cefTRIAXone 1 GM in Sodium Chloride 0.9% 50 ML IV ONE (12:00)
[2022-01-22] MEDS ORDERED: Sodium Chloride 0.9% 1,000 ML IV ONE (17:30)
[2022-01-23] MEDS ORDERED: Levothyroxine 25 MCG Tab PO ONE (07:30)
[2022-01-23] MEDS ORDERED: cefTRIAXone 1 GM in Sodium Chloride 0.9% 50 ML IV ONE (12:00)
[2022-01-24] MEDS ORDERED: Levothyroxine 25 MCG Tab PO ONE (07:30)
[2022-01-24] MEDS ORDERED: cefTRIAXone 1 GM in Sodium Chloride 0.9% 50 ML IV ONE (12:00)
[2022-01-25] MEDS ORDERED: Levothyroxine 25 MCG Tab PO ONE (07:30)
[2022-01-25] MEDS ORDERED: cefTRIAXone 1 GM in Sodium Chloride 0.9% 50 ML IV ONE (12:00)
[2022-01-25] MEDS ORDERED: Acetaminophen Soln 650 MG/20.3 ML UD Cup ONE (13:50)
[2022-01-26] MEDS ORDERED: Levothyroxine 25 MCG Tab PO ONE (07:30)
[2022-02-15 19:01] LABS: ESTIMATED GFR 31 mL/min (>60)
[2022-02-19 14:50] LABS: ESTIMATED GFR 55 mL/min (>60)
== END 2022-01-26 12:00 | disposition home or self-care (01) | DRG 195 ==
LOC: JP.ED 10:00 → JP.ZCENSUS 12:30
PROVIDERS: ADMIT Internal Medicine; ATTEND Internal Medicine
DX: J18.9 Pneumonia, unspecified organism (principal); Z20.822 Contact with and (suspected) exposure to COVID-19; Z66 Do not resuscitate; I12.9 Hypertensive chronic kidney disease with stage 1 through stage 4 chronic kidney disease, or unspecified chronic kidney disease; I95.9 Hypotension, unspecified; E03.9 Hypothyroidism, unspecified; E11.42 Type 2 diabetes mellitus with diabetic polyneuropathy; E11.22 Type 2 diabetes mellitus with diabetic chronic kidney disease; N18.9 Chronic kidney disease, unspecified; E78.5 Hyperlipidemia, unspecified; Z90.49 Acquired absence of other specified parts of digestive tract; Z88.1 Allergy status to other antibiotic agents; Z88.8 Allergy status to other drugs, medicaments and biological substances; Z79.899 Other long term (current) drug therapy; Z79.890 Hormone replacement therapy
CPT/HCPCS: 36415; 71045 ×2; 80053; 81001; 83605; 85027; 87040 ×2; 96365; 99285; J0696; U0002; 71046; 71046-26; 82947; 83880; 85025; 97110-GP; 97162-GP; 97530-GP; 97535-GP; A9270-GY; J3490; J7030

== ENCOUNTER 2022-01-31 18:08 | Emergency (ER) | payer MEDICARE, MEDICAID ==
[2022-01-31 19:39] LABS: ESTIMATED GFR 36 mL/min (>60)
[2022-01-31] MEDS ORDERED: Bisacodyl 10 MG Supp RECTAL ONE (19:48)
[2022-01-31 19:56] VITALS: BP 149/48; PULSE 62
[2022-01-31] MEDS ORDERED: Magnesium Citrate Solution 296 ML Bottle PO ONE (21:03)
[2022-01-31] MEDS ORDERED: Bisacodyl 10 MG Supp ONE (21:23)
== END 2022-01-31 21:30 | disposition home or self-care (01) ==
LOC: JP.ED 18:08
DX: K56.41 Fecal impaction (principal); E78.00 Pure hypercholesterolemia, unspecified; I12.9 Hypertensive chronic kidney disease with stage 1 through stage 4 chronic kidney disease, or unspecified chronic kidney disease; E11.22 Type 2 diabetes mellitus with diabetic chronic kidney disease; N18.9 Chronic kidney disease, unspecified; I25.2 Old myocardial infarction; E03.9 Hypothyroidism, unspecified; J44.9 Chronic obstructive pulmonary disease, unspecified; Z87.891 Personal history of nicotine dependence; Z79.899 Other long term (current) drug therapy; Z88.1 Allergy status to other antibiotic agents; Z88.0 Allergy status to penicillin; Z88.8 Allergy status to other drugs, medicaments and biological substances
CPT/HCPCS: 36415; 80053; 85025; 99283; A9270

== ENCOUNTER 2022-05-11 21:47 | Emergency (ER) | payer MEDICARE, MEDICAID ==
[2022-05-11 22:39] VITALS: BP 174/67; PULSE 64
[2022-05-11 22:40] LABS: ESTIMATED GFR 36 mL/min (>60)
[2022-05-11 22:55] LABS: CORONAVIRUS COVID-19 NAA NEGATIVE (NEGATIVE)
== END 2022-05-11 23:16 | disposition home or self-care (01) ==
LOC: JP.ED 21:47
DX: S06.0X9A Concussion with loss of consciousness of unspecified duration, initial encounter (principal); I35.0 Nonrheumatic aortic (valve) stenosis; R55 Syncope and collapse; R09.89 Other specified symptoms and signs involving the circulatory and respiratory systems; E78.00 Pure hypercholesterolemia, unspecified; J44.9 Chronic obstructive pulmonary disease, unspecified; I10 Essential (primary) hypertension; E03.9 Hypothyroidism, unspecified; I25.2 Old myocardial infarction; E11.9 Type 2 diabetes mellitus without complications; Z88.1 Allergy status to other antibiotic agents; Z88.8 Allergy status to other drugs, medicaments and biological substances; Z88.0 Allergy status to penicillin; Z79.899 Other long term (current) drug therapy; Z90.49 Acquired absence of other specified parts of digestive tract; Z90.710 Acquired absence of both cervix and uterus; Z20.822 Contact with and (suspected) exposure to COVID-19; W01.10XA Fall on same level from slipping, tripping and stumbling with subsequent striking against unspecified object, initial encounter
CPT/HCPCS: 0241U; 36415; 70450; 80053; 85025; 85610; 85730; 93005; 93010; 99284

== ENCOUNTER 2022-10-14 06:17 | Day surgery (SDC) | payer MEDICARE, MEDICAID ==
[2022-10-14] MEDS ORDERED: Sodium Chloride 0.9% 1,000 ML IV SCH (07:00)
[2022-10-14] MEDS ORDERED: Propofol 200 MG/20 ML SDV ONE (07:20)
[2022-10-14] MEDS ORDERED: LORazepam 2 MG/ML SDV IVPUSH ONE (09:00)
[2022-10-14] MEDS ORDERED: amLODIPine 5 MG Tab PO ONE (10:00)
[2022-10-14] MEDS ORDERED: [UNRECOGNIZED DRUG - OTHER] PO SCH (11:15)
[2022-10-14 11:41] VITALS: BP 179/44; PULSE 59
[2022-10-14] MEDS ORDERED: DIPHEN PO PRN (12:01)
[2022-10-14] MEDS ORDERED: LIDOC PO PRN (12:01)
[2022-10-14] MEDS ORDERED: MAALOX PO PRN (12:01)
== END 2022-10-14 12:15 | disposition home or self-care (01) ==
LOC: JP.SDS 06:17
PROVIDERS: ATTEND Internal Medicine
DX: K22.2 Esophageal obstruction (principal); I25.2 Old myocardial infarction; K21.9 Gastro-esophageal reflux disease without esophagitis; I12.9 Hypertensive chronic kidney disease with stage 1 through stage 4 chronic kidney disease, or unspecified chronic kidney disease; E10.22 Type 1 diabetes mellitus with diabetic chronic kidney disease; N18.9 Chronic kidney disease, unspecified; E66.9 Obesity, unspecified; F41.9 Anxiety disorder, unspecified; Z88.1 Allergy status to other antibiotic agents; Z88.8 Allergy status to other drugs, medicaments and biological substances; Z68.25 Body mass index [BMI] 25.0-25.9, adult
CPT/HCPCS: 43248; 71046; A9270; J2060; J2704; J7030

== ENCOUNTER 2022-11-22 17:33 | Emergency (ER) | payer MEDICARE, MEDICAID ==
[2022-11-22 17:54] VITALS: PULSE 72
[2022-11-22] MEDS ORDERED: Sodium Chloride 0.9% 1,000 ML IV SCH (18:30)
[2022-11-22 18:42] LABS: BASOPHILS ABSOLUTE AUTO 0.05 K/uL (0.00-0.10); EOSINOPHILS PERCENT AUTO 7.9 % (0.0-5.4); HEMATOCRIT 36.4 % (34.3-46.0); HEMOGLOBIN 12.4 g/dL (11.2-15.5); IMMATURE GRAN ABSOLUTE AUTO 0.01 K/uL (0.00-0.23); IMMATURE GRAN PERCENT AUTO 0.2 % (0.0-0.7); LYMPHOCYTES ABSOLUTE AUTO 1.75 K/uL (0.8-3.3); LYMPHOCYTES PERCENT AUTO 34.7 % (11.4-47.7); MEAN CORPUSCULAR HGB CONC 34.1 g/dL (31.6-35.5); MEAN CORPUSCULAR VOLUME 88.1 fL (81.4-99.0); MONOCYTES ABSOLUTE AUTO 0.69 K/uL (0.20-0.90); MONOCYTES PERCENT AUTO 13.7 % (3.3-12.6); NEUTROPHILS ABSOLUTE AUTO 2.14 K/uL (1.0-7.6); NEUTROPHILS PERCENT AUTO 42.5 % (40.0-78.1); PLATELET COUNT,PLT 152 K/uL (130-375); RED BLOOD CELL COUNT 4.13 M/uL (3.77-5.24)
[2022-11-22 18:57] LABS: CALCIUM 8.8 mg/dL (8.5-10.1); CREATININE 0.9 mg/dL (0.6-1.0); EST CRCL DRUG DOSING (CG) 34.17 mL/min; POTASSIUM,K 3.4 mmol/L (3.6-5.2)
[2022-11-22 18:58] LABS: ANION GAP 10.4 mmol/L (5.0-14.0)
[2022-11-22] MEDS ORDERED: amLODIPine 5 MG Tab PO ONE (19:01)
[2022-11-22 19:12] LABS: APPEARANCE,URINE SLIGHTLY CLOUDY (CLEAR); BILIRUBIN,URINE NEGATIVE (NEGATIVE); COLOR,URINE YELLOW (YELLOW); GLUCOSE,URINE NEGATIVE (NEGATIVE); KETONES,URINE NEGATIVE (NEGATIVE); LEUKOCYTE ESTERASE,URINE TRACE (NEGATIVE); NITRITE,URINE NEGATIVE (NEGATIVE); OCCULT BLOOD,URINE NEGATIVE (NEGATIVE); PH,URINE 5.5 (5.0-8.0); PROTEIN,URINE TRACE mg/dL (NEGATIVE); UROBILINOGEN,URINE 0.2 EU/dL (0.2-1.0)
[2022-11-22 19:17] LABS: AMORPHOUS SEDIMENT,URINE NOT SEEN; BACTERIA,URINE FEW; EPITHELIAL CELLS,URINE MANY; MUCUS,URINE RARE; RBC,URINE 0-5 (0-5)
[2022-11-22 19:33] VITALS: BP 166/51
[2022-11-22] MEDS ORDERED: hydrALAZINE 20 MG/ML SDV IVPUSH ONE (19:53)
== END 2022-11-22 20:35 | disposition home or self-care (01) ==
LOC: JP.ED 17:33
DX: F41.9 Anxiety disorder, unspecified (principal); I12.9 Hypertensive chronic kidney disease with stage 1 through stage 4 chronic kidney disease, or unspecified chronic kidney disease; E11.22 Type 2 diabetes mellitus with diabetic chronic kidney disease; N18.9 Chronic kidney disease, unspecified; E03.9 Hypothyroidism, unspecified; E78.00 Pure hypercholesterolemia, unspecified; J44.9 Chronic obstructive pulmonary disease, unspecified; I25.2 Old myocardial infarction; Z88.1 Allergy status to other antibiotic agents; Z88.8 Allergy status to other drugs, medicaments and biological substances; Z79.899 Other long term (current) drug therapy; Z87.891 Personal history of nicotine dependence
CPT/HCPCS: 36415; 80048; 81001; 85025; 87086; 99283; 99285; J7030; A9270-GY

== ENCOUNTER 2023-06-04 06:39 | Emergency (ER) | payer MEDICARE, MEDICAID ==
[2023-06-04 06:47] VITALS: BP 209/67; PULSE 63
[2023-06-04] MEDS: Bisacodyl 10 MG Supp RECTAL ONE (07:39)
[2023-06-04] MEDS: Bisacodyl 5 MG Tab PO ONE (07:39)
== END 2023-06-04 09:21 | disposition home or self-care (01) ==
LOC: JP.ED 06:39
DX: K59.00 Constipation, unspecified (principal); I25.2 Old myocardial infarction; J44.9 Chronic obstructive pulmonary disease, unspecified; I12.9 Hypertensive chronic kidney disease with stage 1 through stage 4 chronic kidney disease, or unspecified chronic kidney disease; N18.9 Chronic kidney disease, unspecified; E11.22 Type 2 diabetes mellitus with diabetic chronic kidney disease; E03.9 Hypothyroidism, unspecified; Z88.1 Allergy status to other antibiotic agents; Z88.8 Allergy status to other drugs, medicaments and biological substances; Z88.0 Allergy status to penicillin; Z86.19 Personal history of other infectious and parasitic diseases; Z90.49 Acquired absence of other specified parts of digestive tract
CPT/HCPCS: 99284; A9270

== ENCOUNTER 2024-02-09 08:06 | Day surgery (SDC) | payer MEDICARE, MEDICAID ==
[2024-02-09] MEDS: Sodium Chloride 0.9% 10 ML Syringe FLUSH PRN (09:02)
[2024-02-09 09:41] VITALS: BP 195/56; PULSE 66
== END 2024-02-09 09:58 | disposition home or self-care (01) ==
LOC: JP.SDS 08:06
PROVIDERS: ATTEND Ophthalmology
DX: H25.11 Age-related nuclear cataract, right eye (principal)
CPT/HCPCS: 66984; J3490; V2632

== ENCOUNTER 2024-03-01 07:00 | Day surgery (SDC) | payer MEDICARE, MEDICAID ==
[2024-03-01] MEDS ORDERED: Sodium Chloride 0.9% 10 ML Syringe FLUSH PRN (08:00)
[2024-03-01] MEDS ORDERED: Midazolam 1 MG/ML 2 ML SDV ONE (08:25)
[2024-03-01] MEDS ORDERED: Sodium Chloride 0.9% 10 ML ONE (08:35)
[2024-03-01 09:22] VITALS: BP 166/52; PULSE 53
== END 2024-03-01 09:25 | disposition home or self-care (01) ==
LOC: JP.SDS 07:00
PROVIDERS: ATTEND Ophthalmology
DX: H25.12 Age-related nuclear cataract, left eye (principal); I10 Essential (primary) hypertension
CPT/HCPCS: 66984; J2250; J3490; 00142-QZ; V2632